=== PATIENT | female | born 2000 | race Caucasian/White ===

== ENCOUNTER 2020-06-08 09:48 | Emergency (ER) | payer OTHER ==
--- NOTE | 2020-06-08 10:27 | EDM.PDOC ---
Scribed by Rita Walker 06/08/20 1026 for Jonna Moffett MD ED HPI GENERAL MEDICAL PROBLEM - General Chief Complaint: ENT Problem Stated Complaint: EAR PROBLEMS Time Seen by Provider: 06/08/20 10:08 Source of Information: Reports: Patient, RN, RN Notes Reviewed History Limitations: Reports: No Limitations - History of Present Illness INITIAL COMMENTS - FREE TEXT/NARRATIVE: Patient presents to ER stating her eart hurs while running for PT test at [facility]. She states feels like her eardrum on both sides. She has never had this before or previous ear problems. She had a little runny nose earlier but no flu. Onset: Today Duration: Constant Location: Reports: Other (ears) Quality: Reports: Ache Severity: Moderate Improves with: Reports: None Worsens with: Reports: None Associated Symptoms: Reports: No Other Symptoms - Related Data Allergies Allergy/AdvReac Type Severity Reaction Status Date / Time No Known Allergies Allergy Verified 06/08/20 09:54 Home Meds: Home Meds . [No Known Home Meds] 06/08/20 [History] Past Medical History - Past Health History Medical/Surgical History: Denies Medical/Surgical History Social & Family History - Tobacco Use Smoking Status *Q: Never Smoker Second Hand Smoke Exposure: No ED ROS ENT - Review of Systems Review Of Systems: Comprehensive ROS is negative, except as noted in HPI. ED EXAM, ENT - Physical Exam Exam: See Below Exam Limited By: No Limitations General Appearance: Alert, WD/WN, No Apparent Distress Eye Exam: Bilateral Eye: Normal Inspection, PERRL Ears: Normal TMs, Other (mild clear effusion bilateral ears) Nose: Other (swollen nasal turbinates) Mouth/Throat: Normal Inspection, Normal Gums, Normal Lips, Normal Oropharynx, Normal Teeth Head: Atraumatic, Normocephalic Neck: Normal Inspection, Supple, Non-Tender, Full Range of Motion Respiratory/Chest: No Respiratory Distress, Lungs Clear, Normal Breath Sounds, No Accessory Muscle Use, Chest Non-Tender Cardiovascular: Normal Peripheral Pulses, Regular Rate, Rhythm, No Edema, No Gallop, No JVD, No Murmur, No Rub GI/Abdominal: Normal Bowel Sounds, Soft, Non-Tender, No Organomegaly, No Distention, No Abnormal Bruit, No Mass (Female) Exam: Deferred Rectal (Female) Exam: Deferred Back: Normal Inspection Extremities: Normal Inspection Neurological: Alert, Oriented Psychiatric: Normal Affect, Normal Mood Skin: Warm, Dry, Intact, Normal Color, No Rash Course - Vital Signs Last Recorded V/S: Last Vital Signs Temp 97.4 F 06/08/20 09:51 Pulse 87 06/08/20 09:51 Resp 16 06/08/20 09:51 BP 111/70 06/08/20 09:51 Pulse Ox 100 06/08/20 09:51 Departure - Departure Time of Disposition: 10:24 Disposition: Home, Self-Care 01 Condition: Good Clinical Impression: Acute dysfunction of both eustachian tubes - Discharge Information *PRESCRIPTION DRUG MONITORING PROGRAM REVIEWED*: Not Applicable *COPY OF PRESCRIPTION DRUG MONITORING REPORT IN PATIENT PATRICE: Not Applicable Instructions: Eustachian Tube Dysfunction Forms: ED Department Discharge Sepsis Event Note (ED) - Evaluation Sepsis Screening Result: No Definite Risk - Focused Exam Vital Signs: Vital Signs Temp Pulse Resp BP Pulse Ox 06/08/20 09:51 97.4 F 87 16 111/70 100 - Assessment/Plan Assessment:: 20 yo with bilateral eustachian tube dysfunction and ear pain Plan: Flonase 1 spray each nare BID follow up with PCP in 2-3 days I have read and agree with the documentation that has been completed regarding this visit. By signing this record, I attest that the documentation was completed in my physical presence and is an accurate record of the encounter.
== END 2020-06-08 10:36 | disposition home or self-care (01) ==
LOC: DL.ED 09:48
DX: H69.93 Unspecified Eustachian tube disorder, bilateral (principal)
CPT/HCPCS: 99282